=== PATIENT | male | born 1980 | race Caucasian/White ===

== ENCOUNTER 2024-09-30 17:41 | Emergency (ER) | payer OTHER ==
[~2024-09-30] VITALS: Ht 188 cm; Wt 88.0 kg
[2024-09-30 17:43] VITALS: O2SAT 99
[2024-09-30 18:38] VITALS: BP 126/88; PULSE 90; RESP 16; TEMP 37; O2SAT 98
== END 2024-09-30 18:40 | disposition home or self-care (01) ==
LOC: ER 17:41
DX: F41.9 Anxiety disorder, unspecified (principal); M25.511 Pain in right shoulder
CPT/HCPCS: 99283

== ENCOUNTER 2025-02-11 12:10 | Emergency (ER) | payer SELFPAY ==
[~2025-02-11] VITALS: Ht 185.4 cm; Wt 91.0 kg
[2025-02-11] MEDS: OLANZAPINE 10 MG/VIAL IM ONE ×2 (12:45→14:26)
[2025-02-11 13:28] LABS: BASOPHILS % 0.7 % (0.0-2.0); EOSINOPHILS % 0.4 % (0.0-5.0); HEMATOCRIT. 42.3 % (42.0-52.0); HEMOGLOBIN. 14.8 g/dL (14.0-18.0); LYMPHOCYTES % 21.4 % (20.0-50.0); MEAN PLATELET VOLUME 7.8 fl (7.4-10.4); MONOCYTES % 6.9 % (2.0-8.0); NEUTROPHILS % 70.6 % (40.0-76.0); PLATELET 300 x1000/uL (130-400); RED BLOOD CELL COUNT 4.75 mill/uL (4.7-6.1); RED CELL DISTRIBUTION WIDTH 12.9 % (11.6-14.6)
[2025-02-11 14:06] LABS: CREATININE 0.9 mg/dL (0.6-1.3)
[2025-02-11 14:07] LABS: PROTEIN TOTAL 7.0 g/dL (6.0-8.3); UREA NITROGEN BLOOD 6 mg/dL (9-23)
[2025-02-11 14:08] LABS: ASPARTATE AMINOTRANSFERASE 37 IU/L (<34)
[2025-02-11 14:09] LABS: BILIRUBIN DIRECT 0.2 mg/dL (<=3.0); BILIRUBIN TOTAL 0.6 mg/dL (0.1-1.0)
[2025-02-11] MEDS ORDERED: MIDAZOLAM HCL 5 MG/ML VIAL IM ONE (14:15)
[2025-02-11] MEDS: MIDAZOLAM HCL 5 MG/ML VIAL IM NR (14:30)
[2025-02-11 14:32] LABS: ETHANOL BLOOD 305 mg/dL (<10)
[2025-02-11 14:55] VITALS: BP 142/82; PULSE 102; RESP 20; TEMP 98.6; O2SAT 96
== END 2025-02-11 19:04 | disposition home or self-care (01) ==
LOC: ER 12:10
DX: F10.129 Alcohol abuse with intoxication, unspecified (principal); Z55.6 Problems related to health literacy; Z63.4 Disappearance and death of family member; Z75.3 Unavailability and inaccessibility of health-care facilities; Z79.899 Other long term (current) drug therapy; Z78.1 Physical restraint status; Y90.8 Blood alcohol level of 240 mg/100 ml or more
CPT/HCPCS: 80076; 80048; 80307; 80329; 80320; 83690; 85025; 36415; 93005; 96372; 99291; 87426; J3490; J2250; G0480

== ENCOUNTER 2025-02-11 21:56 | Emergency (ER) | payer SELFPAY ==
[~2025-02-11] VITALS: Ht 175.3 cm; Wt 89.0 kg
[2025-02-11 22:04] VITALS: O2SAT 98
[2025-02-12 00:25] VITALS: BP 114/65; PULSE 89; RESP 18; TEMP 37.1; O2SAT 100
== END 2025-02-12 00:25 ==
LOC: ER 21:56
DX: S00.81XA Abrasion of other part of head, initial encounter (principal); F10.229 Alcohol dependence with intoxication, unspecified; R45.1 Restlessness and agitation; X58.XXXA Exposure to other specified factors, initial encounter; Y93.89 Activity, other specified; Y92.89 Other specified places as the place of occurrence of the external cause; Y99.8 Other external cause status; Y90.9 Presence of alcohol in blood, level not specified
CPT/HCPCS: 99283